=== PATIENT | male | born 1990 | race Caucasian/White ===

== ENCOUNTER 2016-12-12 02:33 | Emergency (ER) | payer OTHER ==
[~2016-12-12] VITALS: Ht 177.8 cm; Wt 63.5 kg
[~2016-12-12 02:33] MED LIST: NAPROXEN500 MG PO; SEROQUEL200 MG PO; TRAMADOL HCL50 MG PO
== END 2016-12-12 04:23 | disposition home or self-care (01) ==
LOC: ED 02:33
DX: F32.9 Major depressive disorder, single episode, unspecified (principal); F17.200 Nicotine dependence, unspecified, uncomplicated; Z98.890 Other specified postprocedural states
CPT/HCPCS: 99282

== ENCOUNTER 2018-05-01 07:45 | Emergency (ER) | payer SELFPAY ==
[~2018-05-01] VITALS: Ht 177.8 cm; Wt 63.5 kg
== END 2018-05-01 08:02 | disposition home or self-care (01) ==
LOC: ED 07:45
DX: R05 Cough (principal)

== ENCOUNTER 2018-05-16 12:17 | Emergency (ER) | payer OTHER ==
[~2018-05-16] VITALS: Ht 177.8 cm; Wt 63.5 kg
--- OUTSIDE RECORDS SUMMARY | 2018-05-16 14:28 | XMS ---
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 Arturo VISIT COUNT (12 MO.) [address] [place] [address] TOTAL 2 NOTE: Visits indicate total known visits. ED/UCC VISIT TRACKING (12 MO.) 05/16/2018 12:17 [facility] [place] TYPE: Emergency COMPLAINT: - MEDICATION REFILL 05/01/2018 07:46 [facility] [place] TYPE: Emergency COMPLAINT: - COUGHING UP STUFF/MSE TO CLINIC DIAGNOSES: - Cough INPATIENT VISIT TRACKING (12 MO.) No inpatient visits to display in this time frame [id number]
[2018-05-16] MEDS ORDERED: SEROQUEL50 MG PO (16:44)
== END 2018-05-16 16:57 | disposition home or self-care (01) ==
LOC: ED 12:17
DX: F31.9 Bipolar disorder, unspecified (principal)
CPT/HCPCS: 99281

== ENCOUNTER 2018-07-08 15:51 | Emergency (ER) | payer OTHER ==
[~2018-07-08] VITALS: Ht 177.8 cm; Wt 63.5 kg
[~2018-07-08 15:51] MED LIST changes: +SEROQUEL50 MG PO
--- OUTSIDE RECORDS SUMMARY | 2018-07-08 15:54 | XMS ---
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 Current Orthopedic Surgery \T\ Fracture Clinic PHONE: Unknown Zulay has no Care Guidelines for this patient. Care History Medical/Surgical 05/22/2018 [facility] - W CONTACTED PATIENT IN REGARDS TO PCP SET UP - CHW DISCUSSED WITH PATIENT ED UTILIZATION VS PCP USAGE. - PATIENT STATED HE WILL BE WORKING WITH [employer] - CHW SET UP AN APT FOR PATIENT TO ESTABLISH CARE WITH EMORY REGALADO AT [facility] ON Sunday05/27/18 @ 1:15PM. 05/20/2018 [facility] - CHW CALLED PATIENT TO HELP PATIENT ESTABLISH CARE WITH A PROVIDER. - PATIENT FRIEND ANSWERED THE PHONE AND STATED THEY WOULD RELAY THE MESSAGE TO THE PATIENT AND HAVE HIM CALL ME BACK. E.D. VISIT COUNT (12 MO.) 2 [facility] 3 [facility]. TOTAL 5 NOTE: Visits indicate total known visits. ED/UCC VISIT TRACKING (12 MO.) 07/08/2018 15:52 [facility] [place] TYPE: Emergency COMPLAINT: - MEDICATION REFILL 06/18/2018 04:27 [facility] OR TYPE: Emergency DIAGNOSES: - Bipolar disorder, unspecified - MED REFILL 06/11/2018 19:13 [facility] OR TYPE: Emergency DIAGNOSES: - HARD TIME BREATHING - Panic disorder [episodic paroxysmal anxiety] 05/16/2018 12:17 [facility] [place] TYPE: Emergency COMPLAINT: - MEDICATION REFILL DIAGNOSES: - Encounter for issue of repeat prescription - Bipolar disorder, unspecified 05/01/2018 07:46 [facility] [place] TYPE: Emergency COMPLAINT: - COUGHING UP STUFF/MSE TO CLINIC DIAGNOSES: - Cough INPATIENT VISIT TRACKING (12 MO.) No inpatient visits to display in this time frame [id number]
[2018-07-08] MEDS ORDERED: SEROQUEL50 MG PO (16:04)
== END 2018-07-08 16:08 | disposition home or self-care (01) ==
LOC: ED 15:51
DX: Z76.0 Encounter for issue of repeat prescription (principal); F32.9 Major depressive disorder, single episode, unspecified; Z90.89 Acquired absence of other organs; Z79.899 Other long term (current) drug therapy
CPT/HCPCS: 99281

== ENCOUNTER 2019-01-23 18:13 | Emergency (ER) | payer OTHER ==
[~2019-01-23] VITALS: Ht 177.8 cm; Wt 77.1 kg
--- OUTSIDE RECORDS SUMMARY | 2019-01-23 18:16 | XMS ---
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 Care History Medical/Surgical 07/11/2018 [facility] - PATIENT CONTACT NUMBER IS NON WORKING NUMBER. - PLEASE HAVE PATIENT PROVIDE UPDATED CONTACT INFORMATION. 07/09/2018 [facility] - PATIENT DID NOT SHOW UP TO APT TO ESTABLISH CARE WITH [facility] ON 05/27/18. 05/22/2018 [facility] - CHW CONTACTED PATIENT IN REGARDS TO PCP SET UP - CHW DISCUSSED WITH PATIENT ED UTILIZATION VS PCP USAGE. - PATIENT STATED HE WILL BE WORKING WITH [employer] - CHW SET UP AN APT FOR PATIENT TO ESTABLISH CARE WITH EMORY REGALADO AT [facility] ON Sunday05/27/18 @ 1:15PM. E.D. VISIT COUNT (12 MO.) 2 [employer] [facility] 4 [facility]. TOTAL 6 NOTE: Visits indicate total known visits. ED/UCC VISIT TRACKING (12 MO.) 01/23/2019 18:14 [facility] TYPE: Emergency COMPLAINT: - SOB, HEAVY CHEST AND ARMS 07/08/2018 15:52 [facility] TYPE: Emergency COMPLAINT: - MEDICATION REFILL DIAGNOSES: - Other penitentiary (current) drug therapy - Major depressive disorder, single episode, unspecified - Acquired absence of other organs - Encounter for issue of repeat prescription 06/18/2018 04:27 [facility] [place] TYPE: Emergency DIAGNOSES: - Bipolar disorder, unspecified - MED REFILL 06/11/2018 19:13 [facility] [place] TYPE: Emergency DIAGNOSES: - HARD TIME [...] visits to display in this time frame [id number]
== END 2019-01-23 19:19 | disposition home or self-care (01) ==
LOC: ED 18:13
DX: R06.02 Shortness of breath (principal)

== ENCOUNTER 2019-02-07 15:28 | Emergency (ER) | payer MEDICARE, OTHER ==
[~2019-02-07] VITALS: Ht 177.8 cm; Wt 77.1 kg
--- OUTSIDE RECORDS SUMMARY | ~2019-02-07 | XMS | Clinical Summary ---
Demographics + + + | Address | [address] | | | [place] [address] | + + + | Home Phone | | + + + | Preferred Language | Unknown | + + + | Marital Status | Unknown | + + + | Muslim Affiliation | Unknown | + + + | Race | Unknown | + + + | Ethnic Group | Unknown | + + + Author + + + | Author | [facility] | | | and Hema | + + + | Organization | [facility] | | | and [place] | + + + | Address | Unknown | + + + | Phone | Unavailable | + + + Care Team Providers + +------+ + | Care Wheelchair Driver Name | Role | Phone | + [...]
--- OUTSIDE RECORDS SUMMARY | ~2019-02-07 | XMS | Clinical Summary ---
Demographics + + + | Address | [address] | | | [place] [address] | + + + | Home Phone | | + + + | Preferred Language | Unknown | + + + | Marital Status | Unknown | + + + | Restorationism Affiliation | Unknown | + + + | Race | Unknown | + + + | Ethnic Group | Unknown | + + + Author + + + | Author | [facility] | | | and Hema | + + + | Organization | [facility] | | | and [place] | + + + | Address | Unknown | + + + | Phone | Unavailable | + + + Care Team Providers + +------+ + | Care Medical Auditor Name | Role | Phone | + [...]
--- OUTSIDE RECORDS SUMMARY | 2019-02-07 15:30 | XMS ---
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 Care History Medical/Surgical 07/11/2018 [facility] - PATIENT CONTACT NUMBER IS NON WORKING NUMBER. - PLEASE HAVE PATIENT PROVIDE UPDATED CONTACT INFORMATION. 07/09/2018 [facility] - PATIENT DID NOT SHOW UP TO APT TO ESTABLISH CARE WITH [facility] ON 05/27/18. 05/22/2018 [facility] - CHW CONTACTED PATIENT IN REGARDS TO PCP SET UP - CHW DISCUSSED WITH PATIENT ED UTILIZATION VS PCP USAGE. - PATIENT STATED HE WILL BE WORKING WITH [employer] - CHW SET UP AN APT FOR PATIENT TO ESTABLISH CARE WITH EMORY REGALADO AT [facility] ON Sunday05/27/18 @ 1:15PM. E.D. VISIT COUNT (12 MO.) 2 [facility] T[facility] NOTE: Visits indicate total known visits. ED/UCC VISIT TRACKING (12 MO.) 02/07/2019 15:29 [facility] [place] TYPE: Emergency COMPLAINT: - WEAKNESS 01/23/2019 18:14 [facility] TYPE: Emergency COMPLAINT: - SOB, HEAVY CHEST AND ARMS DIAGNOSES: - Shortness of breath 07/08/2018 15:52 [facility] [place] TYPE: Emergency COMPLAINT: - MEDICATION REFILL DIAGNOSES: - Other fci (current) drug therapy - Major depressive disorder, single episode, unspecified - Acquired absence of other organs - Encounter for issue of repeat prescription 06/18/2018 04:27 [facility] [place] TYPE: Emergency DIAGNOSES: - Bipolar disorder, unspecified - MED REFILL 06/11/2018 19:13 [employer] [facility] [place] TYPE: Emergency DIAGNOSES: - HARD TIME [...] visits to display in this time frame [id number]
== END 2019-02-07 17:35 | disposition home or self-care (01) ==
LOC: ED 15:28
DX: R53.1 Weakness (principal); F31.9 Bipolar disorder, unspecified; Z87.891 Personal history of nicotine dependence; Z79.899 Other long term (current) drug therapy
CPT/HCPCS: 99284

== ENCOUNTER 2019-02-22 15:43 | Emergency (ER) | payer MEDICARE, OTHER ==
[~2019-02-22] VITALS: Ht 177.8 cm; Wt 77.1 kg
--- OUTSIDE RECORDS SUMMARY | ~2019-02-22 | XMS | Clinical Summary ---
Demographics + + + | Address | [address] | | | [place] [address] | + + + | Home Phone | | + + + | Preferred Language | Unknown | + + + | Marital Status | Unknown | + + + | Gnosticist Affiliation | Unknown | + + + | Race | Unknown | + + + | Ethnic Group | Unknown | + + + Author + + + | Author | [facility] | | | and Hema | + + + | Organization | [facility] | | | and [place] | + + + | Address | Unknown | + + + | Phone | Unavailable | + + + Care Team Providers + +------+ + | Care Shredded Filler Cigar Maker Machine Name | Role | Phone | + +------+ + PCP | Unavailable | + +------+ + Allergies Not on File Medications Not on file Active Problems Not on file Social History + +-------+ +--------+------+ | Tobacco Use | Types | Packs/Day | Years | Date | | | | | Used | | + +-------+ +--------+------+ | Never Assessed | | | | | + +-------+ +--------+------+ + + + | Sex Assigned at | Date Recorded | | | | + + + | Not on file | | + + + + + + + | Job Start Date | Occupation | Industry | + + + + | Not on file | Not on file | Not on file | + + + + + + + + | Travel History | Travel Start | Travel End | + + + + + + | No recent travel history available. | + + Last Filed Vital Signs + + + + | Vital Sign | Reading | Time Taken | + + + + | Blood Pressure | 108/78 | 10/26/2016943 PDT | + + + + | Pulse | 66 | 10/26/2016943 PDT | + + + + | Temperature | - | - | + + + + | Respiratory Rate | 18 | 10/26/2016943 PDT | + + + + | Oxygen Saturation | 98% | 10/26/2016943 PDT | + + + + | Inhaled Oxygen | - | - | | Concentration | | | + + + + | Weight | 67.3 kg (148 lb 4.9 | 10/26/2016943 PDT | | | oz) | | + + + + | Height | 180.3 cm (5' 10.98") | 10/26/2016943 PDT | + + + + | Body Mass Index | 20.7 | 10/26/2016943 PDT | + + + + Plan of Treatment + + + + + | Health Maintenance | Due Date | Last Done | Comments | + + + + + | Vaccine: | | | | | Dtap/Tdap/Td (1 - | 0 | | | | Tdap) | | | | + + + + + | Vaccine: Influenza | | | | | (#1) | 9 | | | + + + + + Results Not on filefrom Last 3 Months
--- OUTSIDE RECORDS SUMMARY | ~2019-02-22 | XMS | Clinical Summary ---
Demographics + + + | Address | [address] | | | [place] [address] | + + + | Home Phone | | + + + | Preferred Language | Unknown | + + + | Marital Status | Unknown | + + + | Sabianist Affiliation | Unknown | + + + | Race | Unknown | + + + | Ethnic Group | Unknown | + + + Author + + + | Author | [facility] | | | and Hema | + + + | Organization | [facility] | | | and [place] | + + + | Address | Unknown | + + + | Phone | Unavailable | + + + Care Team Providers + +------+ + | Care Air Intelligence Officer Name | Role | Phone | + [...]
--- OUTSIDE RECORDS SUMMARY | 2019-02-22 15:46 | XMS ---
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 Care History Medical/Surgical 07/11/2018 [facility] - PATIENT CONTACT NUMBER IS NON WORKING NUMBER. - PLEASE HAVE PATIENT PROVIDE UPDATED CONTACT INFORMATION. 07/09/2018 [facility] - PATIENT DID NOT SHOW UP TO APT TO ESTABLISH CARE WITH [facility] ON 05/27/18. 05/22/2018 [facility] - CHW CONTACTED PATIENT IN REGARDS TO PCP SET UP - CHW DISCUSSED WITH PATIENT ED UTILIZATION VS PCP USAGE. - PATIENT STATED HE WILL BE WORKING WITH [employer] - CHW SET UP AN APT FOR PATIENT TO ESTABLISH CARE WITH EMORY REGALADO AT [facility] ON Sunday05/27/18 @ 1:15PM. E.D. VISIT COUNT (12 MO.) [facility] [address] [facility]. TOTAL 8 NOTE: Visits indicate total known visits. 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
[2019-02-22] MEDS ORDERED: SEROQUEL XR50 MG PO (16:12)
== END 2019-02-22 16:10 | disposition home or self-care (01) ==
LOC: ED 15:43
DX: Z76.0 Encounter for issue of repeat prescription (principal); Z87.891 Personal history of nicotine dependence
CPT/HCPCS: 99281

== ENCOUNTER 2022-11-23 05:20 | Emergency (ER) | payer MEDICARE, OTHER ==
[~2022-11-23] VITALS: Ht 177.8 cm; Wt 83.8 kg
[~2022-11-23 05:20] MED LIST changes: +SEROQUEL XR50 MG PO
--- OUTSIDE RECORDS SUMMARY | 2022-11-23 05:23 | XMS ---
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 - PLEASE HAVE PATIENT PROVIDE UPDATED CONTACT INFORMATION. 07/09/2018 [facility] - PATIENT DID NOT SHOW UP TO APT TO ESTABLISH CARE WITH [facility] ON 05/27/18. 05/22/2018 [facility] - CHW CONTACTED PATIENT IN REGARDS TO PCP SET UP - CHW DISCUSSED WITH PATIENT ED UTILIZATION VS PCP USAGE. - PATIENT STATED HE WILL BE WORKING WITH [facility] - W SET UP AN APT FOR PATIENT TO ESTABLISH CARE WITH EMORY REGALADO AT [facility] ON Sunday05/27/18 @ 1:15PM. E.D. VISIT COUNT (12 MO.) [facility] TOTAL 3 NOTE: Visits indicate total known visits. ED/UCC VISIT TRACKING (12 MO.) 11/23/2022 05:21 [facility] [place] TYPE: Emergency COMPLAINT: - LEG DISCOMFORT 11/20/2022 01:28 [facility] [place] TYPE: Emergency COMPLAINT: - INSOMNIA SOB DIAGNOSES: - INSOMNIA SOB 11/18/2022 22:59 [facility] OR TYPE: Emergency DIAGNOSES: - Insomnia, unspecified - Insomnia INPATIENT VISIT TRACKING (12 MO.) No inpatient visits to display in this time frame [id number]
[2022-11-23] MEDS ORDERED: ROPINIROLE HCL0.5 MG PO (06:03)
[2022-11-23] MEDS ORDERED: HYDROXYZINE HCL25 MG PO (07:25)
[2022-11-23 07:37] VITALS: BP 139/92
== END 2022-11-23 07:39 | disposition home or self-care (01) ==
LOC: ED 05:20
DX: F41.9 Anxiety disorder, unspecified (principal); Z87.891 Personal history of nicotine dependence
CPT/HCPCS: 99283